=== PATIENT | female | born 1985 | race Caucasian/White ===

== ENCOUNTER 2020-09-09 03:58 | Emergency (ER) | payer MEDICAID, OTHER ==
[~2020-09-09] VITALS: Ht 152.4 cm; Wt 77.0 kg
[~2020-09-09 03:58] MED LIST: NAPROXEN
[2020-09-09] MEDS ORDERED: ONDANSETRON HCL 4MG/2ML INJ IV STA ×2 (04:46→05:49)
[2020-09-09] MEDS ORDERED: KETOROLAC 30MG/ML VIAL IV STA (04:46)
[2020-09-09] MEDS ORDERED: SODIUM CHLORIDE 0.9% 1,000 ML IV ONE (05:00)
[2020-09-09 05:17] LABS: CHLORIDE 108 mEq/L (98-107)
[2020-09-09 05:22] LABS: BASOPHILS % 0.9 % (0.0-2.0); EOSINOPHILS % 2.1 % (0.0-5.0); HEMATOCRIT. 36.3 % (36.0-48.0); HEMOGLOBIN. 12.1 g/dL (12.0-16.0); LYMPHOCYTES % 28.1 % (20.0-50.0); MEAN CORPUSCULAR HEMOGLOBIN 29.8 pg (28.0-32.0); MEAN CORPUSCULAR VOLUME 89.5 fL (81.0-99.0); MEAN PLATELET VOLUME 7.6 fl (7.4-10.4); MONOCYTES % 5.4 % (2.0-8.0); NEUTROPHILS % 63.5 % (40.0-76.0); PLATELET 420 x1000/uL (130-400); RED BLOOD CELL COUNT 4.06 mill/uL (4.2-5.4); RED CELL DISTRIBUTION WIDTH 15.6 % (11.6-14.6)
[2020-09-09 05:23] LABS: CLARITY URINE CLEAR (CLEAR); COLOR URINE YELLOW (YELLOW); KETONES URINE NEGATIVE (NEGATIVE); LEUKOCYTE ESTERASE URINE TRACE (NEGATIVE); NITRITE URINE NEGATIVE (NEGATIVE); OCCULT BLOOD URINE TRACE (NEGATIVE); PH URINE 6.5 (4.5-8.0); PROTEIN URINE NEGATIVE (NEGATIVE); SPECIFIC GRAVITY URINE 1.013 (1.005-1.030); UROBILINOGEN URINE 0.2 E.U./dL (0.2-1.0)
[2020-09-09] MEDS ORDERED: MORPHINE SULFATE 4 MG/ML CPJ (NOT FOR IM USE) IV STA (05:49)
[2020-09-09] MEDS ORDERED: T3 PO (08:28)
[2020-09-09] MEDS ORDERED: IBUP-2030 PO (08:28)
[2020-09-09 08:32] VITALS: BP 111/59
== END 2020-09-09 07:57 | disposition home or self-care (01) ==
LOC: ER 03:58
DX: R10.32 Left lower quadrant pain (principal); D64.9 Anemia, unspecified; F41.9 Anxiety disorder, unspecified; G40.909 Epilepsy, unspecified, not intractable, without status epilepticus; F12.90 Cannabis use, unspecified, uncomplicated
CPT/HCPCS: 36415; 74176; 80053; 81003; 81025; 83690; 85025; 93005; 96361; 96374; 96375; 96376; 99285; J1885; J2270; J2405; J7030

== ENCOUNTER 2021-08-20 07:35 | Inpatient (IN) | payer MEDICAID, OTHER ==
[~2021-08-20] VITALS: Ht 149.9 cm; Wt 77.1 kg
[~2021-08-20 07:35] MED LIST changes: +IBUP-2030 PO; +T3 PO
[2021-08-20] MEDS ORDERED: CYCLOBENZAPRINE 10MG TABLET PO ONE (08:15)
[2021-08-20] MEDS ORDERED: ACETAMINOPHEN 325MG TABLET PO ONE (08:15)
[2021-08-20] MEDS ORDERED: PREDNISONE 20MG TABLET PO ONE (08:15)
[2021-08-20] MEDS ORDERED: KETOROLAC 30MG/ML VIAL IM ONE (08:15)
[2021-08-20] MEDS ORDERED: CYCL5TAB MT (10:26)
[2021-08-20] MEDS ORDERED: MED4 MT (10:28)
[2021-08-20] MEDS ORDERED: MORPHINE SULFATE 4 MG/ML CPJ (NOT FOR IM USE) IV ONE (11:00)
[2021-08-20 11:47] LABS: BASOPHILS % 0.6 % (0.0-2.0); EOSINOPHILS % 1.8 % (0.0-5.0); HEMATOCRIT. 35.4 % (36.0-48.0); HEMOGLOBIN. 11.8 g/dL (12.0-16.0); MEAN CORPUSCULAR HEMOGLOBIN 30.2 pg (28.0-32.0); MEAN CORPUSCULAR VOLUME 90.9 fL (81.0-99.0); MEAN PLATELET VOLUME 8.5 fl (7.4-10.4); MONOCYTES % 5.4 % (2.0-8.0); NEUTROPHILS % 60.2 % (40.0-76.0); PLATELET 360 x1000/uL (130-400); RED BLOOD CELL COUNT 3.89 mill/uL (4.2-5.4); RED CELL DISTRIBUTION WIDTH 14.9 % (11.6-14.6)
[2021-08-20 11:49] LABS: CHLORIDE 110 mEq/L (98-107)
[2021-08-20] MEDS ORDERED: HYDROCODONE/ACETAMINOPHEN 5/325MG TABLET PO PRN (13:45)
[2021-08-20] MEDS ORDERED: NALOXONE HCL 0.4MG/ML VIAL IV PRN (14:00)
[2021-08-20] MEDS: GABAPENTIN 100MG CAPSULE PO SCH ×2 (14:08→21:27)
[2021-08-20] MEDS: KETOROLAC 30MG/ML VIAL IV PRN ×2 (15:00→21:23)
[2021-08-20 20:00] VITALS: BP 111/71
[2021-08-20] MEDS: HYDROCODONE/ACETAMINOPHEN 10/325MG TABLET PO PRN (23:10)
[2021-08-21] VITALS: BP 142/61
[2021-08-21 04:00] VITALS: BP 132/62
[2021-08-21] MEDS: HYDROCODONE/ACETAMINOPHEN 10/325MG TABLET PO PRN ×4 (05:00→20:55)
[2021-08-21] MEDS: GABAPENTIN 100MG CAPSULE PO SCH ×3 (05:00→20:57)
[2021-08-21 08:00] VITALS: BP 110/50
[2021-08-21] MEDS: KETOROLAC 30MG/ML VIAL IV PRN ×3 (08:59→23:56)
[2021-08-21 12:00] VITALS: BP 104/55
[2021-08-21] MEDS: DEXAMETHASONE 4MG/ML 1ML VIAL IV SCH ×3 (13:20→23:55)
[2021-08-21 16:00] VITALS: BP 104/50
[2021-08-21 20:00] VITALS: BP 120/69
[2021-08-22] VITALS: BP 130/63
[2021-08-22] MEDS: HYDROCODONE/ACETAMINOPHEN 10/325MG TABLET PO PRN ×4 (01:56→19:34)
[2021-08-22 02:59] LABS: *AMPHETAMINES SCREEN URINE NEGATIVE (NEGATIVE); *BARBITURATES SCREEN URINE NEGATIVE (NEGATIVE); *COCAINE SCREEN URINE NEGATIVE (NEGATIVE); METHADONE URINE SCREEN NEGATIVE (NEGATIVE); PHENCYCLIDINE URINE SCREEN NEGATIVE (NEGATIVE)
[2021-08-22 03:09] LABS: *BENZODIAZEPINES SCREEN URINE NEGATIVE (NEGATIVE)
[2021-08-22 03:54] LABS: CANNABINOID URINE SCREEN PRESUMTIVE POSITIVE (NEGATIVE); OPIATES URINE SCREEN PRESUMTIVE POSITIVE (NEGATIVE)
[2021-08-22 04:00] VITALS: BP 152/74
[2021-08-22] MEDS: DEXAMETHASONE 4MG/ML 1ML VIAL IV SCH (06:09)
[2021-08-22] MEDS: KETOROLAC 30MG/ML VIAL IV PRN (06:10)
[2021-08-22] MEDS: GABAPENTIN 100MG CAPSULE PO SCH ×3 (06:10→21:06)
[2021-08-22 08:00] VITALS: BP 131/94
[2021-08-22] MEDS: MORPHINE SULFATE 2 MG/ML CPJ (NOT FOR IM USE) IV PRN ×3 (11:08→22:24)
[2021-08-22 11:13] LABS: PROTHROMBIN TIME 10.7 sec (9.6-11.0)
[2021-08-22 12:00] VITALS: BP 108/78
[2021-08-22 14:15] LABS: HEMATOCRIT. 34.9 % (36.0-48.0); HEMOGLOBIN. 11.5 g/dL (12.0-16.0); MEAN CORPUSCULAR HEMOGLOBIN 29.9 pg (28.0-32.0); MEAN CORPUSCULAR VOLUME 90.6 fL (81.0-99.0); MEAN PLATELET VOLUME 7.5 fl (7.4-10.4); PLATELET 422 x1000/uL (130-400); RED BLOOD CELL COUNT 3.85 mill/uL (4.2-5.4); RED CELL DISTRIBUTION WIDTH 14.8 % (11.6-14.6)
[2021-08-22 14:24] LABS: CHLORIDE 109 mEq/L (98-107)
[2021-08-22 14:34] LABS: PLATELET ESTIMATE SLIGHTLY INCREASED
[2021-08-22 14:36] LABS: HCG SCREEN NEGATIVE
[2021-08-22 16:00] VITALS: BP 139/79
[2021-08-22 20:00] VITALS: BP 123/63
[2021-08-22] MEDS ORDERED: DOCUSATE SODIUM 250MG CAPSULE PO PRN (21:15)
[2021-08-23] VITALS: BP 134/89
[2021-08-23] MEDS: MORPHINE SULFATE 2 MG/ML CPJ (NOT FOR IM USE) IV PRN (02:04)
[2021-08-23 04:00] VITALS: BP 100/66
[2021-08-23] MEDS ORDERED: THROMBIN (BOVINE) 5000 UNITS/VIAL TOP ONE (06:45)
[2021-08-23] MEDS ORDERED: POLYMYXIN B SULFATE 500000 UNITS/VIAL ONE (06:45)
[2021-08-23] MEDS ORDERED: LIDOCAINE HCL/EPINEPHRINE 1%-EPI 1:100,000 20 ML VIAL ONE (07:14)
[2021-08-23] MEDS ORDERED: MORPHINE SULFATE 2 MG/ML CPJ (NOT FOR IM USE) IV PRN (08:15)
[2021-08-23] MEDS ORDERED: HYDRALAZINE 20MG/ML VIAL IV PRN (08:15)
[2021-08-23] MEDS ORDERED: DEXAMETHASONE 4MG/ML 1ML VIAL ONE (08:44)
[2021-08-23] MEDS ORDERED: ROCURONIUM BROMIDE 10MG/ML VIAL 5ML IV ONE (08:44)
[2021-08-23] MEDS ORDERED: HYDROMORPHONE HCL/PF 2MG/ML (OR) ONE (08:44)
[2021-08-23] MEDS ORDERED: CEFAZOLIN SODIUM 1000MG/VIAL ONE (09:03)
[2021-08-23] MEDS ORDERED: LABETALOL 5MG/ML SYR 20 MG/4 ML SYRINGE IV PRN (10:30)
[2021-08-23] MEDS ORDERED: ONDANSETRON HCL 4MG/2ML INJ IV PRN (10:30)
[2021-08-23] MEDS ORDERED: MEPERIDINE HCL/PF 25MG/ML CPJ IV PRN (10:30)
[2021-08-23] MEDS ORDERED: HYDROMORPHONE HCL/PF 2MG/ML CPJ IV PRN (10:30)
[2021-08-23 12:00] VITALS: BP 106/53
[2021-08-23] MEDS: MORPHINE SULFATE 4 MG/ML CPJ (NOT FOR IM USE) IV PRN ×2 (12:48→20:09)
[2021-08-23] MEDS ORDERED: CEFAZOLIN SODIUM 1000MG/VIAL IV SCH (14:00)
[2021-08-23] MEDS: GABAPENTIN 100MG CAPSULE PO SCH ×2 (15:50→22:42)
[2021-08-23 16:00] VITALS: BP 98/55
[2021-08-23] MEDS: CEFAZOLIN 1000MG PREMIX 50 ML IV SCH ×2 (16:58→22:05)
[2021-08-23] MEDS: HYDROCODONE/ACETAMINOPHEN 10/325MG TABLET PO PRN ×2 (17:01→23:03)
[2021-08-23 20:00] VITALS: BP 104/58
[2021-08-24] VITALS: BP 100/43
[2021-08-24 04:00] VITALS: BP 125/65
[2021-08-24] MEDS: MORPHINE SULFATE 4 MG/ML CPJ (NOT FOR IM USE) IV PRN ×4 (04:47→18:48)
[2021-08-24] MEDS: CEFAZOLIN 1000MG PREMIX 50 ML IV SCH ×2 (05:29→12:55)
[2021-08-24] MEDS: GABAPENTIN 100MG CAPSULE PO SCH ×3 (06:25→21:12)
[2021-08-24 08:00] VITALS: BP 120/60
[2021-08-24] MEDS: HYDROCODONE/ACETAMINOPHEN 10/325MG TABLET PO PRN ×3 (09:51→21:16)
[2021-08-24 12:00] VITALS: BP 105/63
[2021-08-24 16:00] VITALS: BP 110/53
[2021-08-24 20:00] VITALS: BP 106/54
[2021-08-25] VITALS: BP 104/51
[2021-08-25] MEDS: MORPHINE SULFATE 4 MG/ML CPJ (NOT FOR IM USE) IV PRN ×6 (00:12→22:51)
[2021-08-25 04:00] VITALS: BP 114/54
[2021-08-25 08:00] VITALS: BP 119/79
[2021-08-25] MEDS ORDERED: DIAZEPAM 2 MG TABLET PO NR (08:30)
[2021-08-25 12:00] VITALS: BP 118/63
[2021-08-25] MEDS: HYDROCODONE/ACETAMINOPHEN 10/325MG TABLET PO PRN (12:29)
[2021-08-25] MEDS: DEXAMETHASONE 4MG/ML 1ML VIAL IV SCH ×2 (12:29→17:54)
[2021-08-25] MEDS: GABAPENTIN 100MG CAPSULE PO SCH ×2 (15:45→22:50)
[2021-08-25 16:00] VITALS: BP 130/70
[2021-08-25 18:16] LABS: CLARITY URINE CLEAR (CLEAR); COLOR URINE YELLOW (YELLOW); KETONES URINE NEGATIVE (NEGATIVE); LEUKOCYTE ESTERASE URINE NEGATIVE (NEGATIVE); NITRITE URINE NEGATIVE (NEGATIVE); OCCULT BLOOD URINE TRACE (NEGATIVE); PROTEIN URINE NEGATIVE (NEGATIVE); SPECIFIC GRAVITY URINE 1.009 (1.005-1.030); UROBILINOGEN URINE 0.2 E.U./dL (0.2-1.0)
[2021-08-25 20:00] VITALS: BP 110/60
[2021-08-26] VITALS: BP 117/71
[2021-08-26] MEDS: DEXAMETHASONE 4MG/ML 1ML VIAL IV SCH ×3 (00:03→12:24)
[2021-08-26] MEDS: MORPHINE SULFATE 4 MG/ML CPJ (NOT FOR IM USE) IV PRN ×2 (02:04→06:13)
[2021-08-26 04:00] VITALS: BP 120/70
[2021-08-26] MEDS: GABAPENTIN 100MG CAPSULE PO SCH ×2 (06:06→15:08)
[2021-08-26 08:00] VITALS: BP 130/67
[2021-08-26] MEDS: HYDROCODONE/ACETAMINOPHEN 5/325MG TABLET PO PRN ×2 (09:11→15:08)
[2021-08-26 12:00] VITALS: BP 114/61
[2021-08-26 15:21] VITALS: BP 114/69
[2021-08-26] MEDS ORDERED: HYDR-4001 MT (15:36)
[2021-08-26 16:00] VITALS: BP 114/69
== END 2021-08-26 17:15 | disposition home or self-care (01) | DRG 310 ==
LOC: ER 07:35 → 6EST 13:24 → ENRESERV 16:27
PROVIDERS: ADMIT Internal Medicine; ATTEND Internal Medicine
PROC: 0SB40ZZ Excision of Lumbosacral Disc, Open Approach (ICD-10-PCS; principal; 2021-08-23)
PROC: 01NR0ZZ Release Sacral Nerve, Open Approach (ICD-10-PCS; 2021-08-23)
PROC: 01NB0ZZ Release Lumbar Nerve, Open Approach (ICD-10-PCS; 2021-08-23)
DX: M51.17 Intervertebral disc disorders with radiculopathy, lumbosacral region (principal); G82.20 Paraplegia, unspecified; E87.8 Other disorders of electrolyte and fluid balance, not elsewhere classified; M48.061 Spinal stenosis, lumbar region without neurogenic claudication; E66.9 Obesity, unspecified; F17.210 Nicotine dependence, cigarettes, uncomplicated; M51.26 Other intervertebral disc displacement, lumbar region; Z20.822 Contact with and (suspected) exposure to COVID-19; M79.7 Fibromyalgia; F41.9 Anxiety disorder, unspecified; R56.9 Unspecified convulsions; Z88.5 Allergy status to narcotic agent; Z68.34 Body mass index [BMI] 34.0-34.9, adult; Z90.49 Acquired absence of other specified parts of digestive tract; Z71.6 Tobacco abuse counseling
CPT/HCPCS: 36415; 72100; 72131; 72148; 76000; 80048; 80053; 80305; 81003; 84703; 85025; 86850; 86900; 87426; 88304; 88311; 95925; 95926; 95928; 95929; 97161; 99285; J0360; J0690; J1100; J1170; J1885; J2175; J2270; J2405; J3490; J7512

== ENCOUNTER 2023-01-29 15:05 | Emergency (ER) | payer OTHER, MEDICAID ==
[~2023-01-29] VITALS: Ht 152.4 cm; Wt 77.0 kg
[~2023-01-29 15:05] MED LIST changes: +CYCL5TAB MT; +HYDR-4001 MT; +MED4 MT
[2023-01-29 15:25] VITALS: BP 123/72; PULSE 95; RESP 18; TEMP 98.9; O2SAT 100
[2023-01-29 16:25] LABS: BASOPHILS % 0.8 % (0.0-2.0); EOSINOPHILS % 1.2 % (0.0-5.0); HEMATOCRIT. 35.7 % (36.0-48.0); HEMOGLOBIN. 11.8 g/dL (12.0-16.0); LYMPHOCYTES % 20.2 % (20.0-50.0); MEAN CORPUSCULAR HEMOGLOBIN 30.2 pg (28.0-32.0); MEAN CORPUSCULAR HGB CONC 33.2 g/dL (31.0-37.0); MEAN CORPUSCULAR VOLUME 91.2 fL (81.0-99.0); MEAN PLATELET VOLUME 7.4 fl (7.4-10.4); MONOCYTES % 4.5 % (2.0-8.0); NEUTROPHILS % 73.3 % (40.0-76.0); PLATELET 326 x1000/uL (130-400); RED BLOOD CELL COUNT 3.91 mill/uL (4.2-5.4); RED CELL DISTRIBUTION WIDTH 14.9 % (11.6-14.6); WHITE BLOOD COUNT 9.3 x1000/uL (4.5-11.0)
[2023-01-29 16:32] LABS: CHLORIDE 108 mEq/L (98-107); INDEX HEMOLYSI 2 (1-3); INDEX ICTERIC 1 (1-4); INDEX LIPEMIC 1 (1-3); POTASSIUM 4.3 mEq/L (3.5-5.1); SODIUM 137 mEq/L (136-145)
[2023-01-29 16:45] LABS: ALANINE AMINOTRANSFERASE 24 IU/L (13-61); ALBUMIN 3.4 g/dL (3.4-5.0); ASPARTATE AMINOTRANSFERASE 22 IU/L (15-37); B-HCG QUANTITATIVE 404 mIU/mL (<3); BILIRUBIN TOTAL 0.5 mg/dL (0.1-1.0); CALCIUM 8.3 mg/dL (8.5-10.1); CARBON DIOXIDE 24 mEq/L (21-32); CREATININE 0.5 mg/dL (0.6-1.3); GLUCOSE 107 mg/dL (70-105); PROTEIN TOTAL 7.7 g/dL (6.0-8.3); UREA NITROGEN BLOOD 9 mg/dL (7-21)
== END 2023-01-29 18:36 | disposition home or self-care (01) ==
LOC: ER 15:05
DX: O20.0 Threatened abortion (principal); D64.9 Anemia, unspecified; F41.9 Anxiety disorder, unspecified; F12.10 Cannabis abuse, uncomplicated; Z90.49 Acquired absence of other specified parts of digestive tract; Z98.890 Other specified postprocedural states; Z79.899 Other long term (current) drug therapy; Z3A.01 Less than 8 weeks gestation of pregnancy
CPT/HCPCS: 36415; 76801; 80053; 84702; 85025; 86850; 86900; 99284